=== PATIENT | female | born 1995 | race Caucasian/White ===

== ENCOUNTER 2023-01-10 00:49 | Emergency (ER) | payer BC, SELFPAY ==
[2023-01-10 00:52] VITALS: BP 192/110; PULSE 63; RESP 18; TEMP 36.6; O2SAT 99; BMI 27.4
[2023-01-10 01:02] LABS: MANUAL DIFF FLAG NO
[2023-01-10 01:04] LABS: Basophils Percent Auto 0.2 % (0-2); Eosinophils Absolute Auto 0.2 X10*3/uL (0.0-0.4); Eosinophils Percent Auto 2.3 % (0-4); Hematocrit 39.5 % (37.0-47.0); Hemoglobin 12.3 g/dl (12.0-16.0); Imm Gran Abs Auto 0.03 X10*3/uL (0.00-0.03); Imm Gran Pct Auto 0.4 % (0.0-0.4); Lymphocytes Absolute Auto 2.8 X10*3/uL (1.2-4.9); Lymphocytes Percent Auto 33.2 % (20-40); Mean Corpuscular HGB Conc 31.1 g/dl (31.0-35.0); Mean Corpuscular Hemoglobin 27.8 pg (27.0-33.0); Mean Corpuscular Volume 89.4 fL (80.0-98.0); Mean Platelet Volume 10.1 fL (9.4-12.3); Monocytes Absolute Auto 0.6 X10*3/uL (0.1-1.2); Neutrophils Absolute Auto 4.8 x10*3/uL (2.0-8.3); Neutrophils Percent Auto 56.9 % (45-73); Platelet Count 194 X10*3/uL (160-400); Red Blood Count 4.42 X10*6/uL (4.20-5.50); Red Cell Distribution Width 12.8 % (11.0-16.0); White Blood Count 8.4 X10*3/uL (4.8-10.8)
[2023-01-10 01:30] LABS: Anion Gap 11 (12-20); Blood Urea Nitrogen 18 mg/dL (9-16); Calcium 9.3 mg/dL (8.4-10.2); Carbon Dioxide 28 mmol/L (22-29); Chloride 106 mmol/L (96-108); Estimated Glomerular Filt Rate > 60; Glucose Random 92 mg/dL (60-115); Potassium 3.8 mmol/L (3.3-5.1); Sodium 141 mmol/L (135-145)
--- OUTSIDE RECORDS SUMMARY | 2023-01-10 02:44 | XMS_ITS | Continuity of Care Document ---
Author Name Unknown Organization [facility] ter Address [address] [place] [id number] Care Team Providers Care Avionics Repair Technician Name Role Phone Not on Staff, PCP Primary Care Physician Unavail able Encounter [facility] Date(s): 11/19/22 - 11/21/[address] [address]- Discharge Disposition: A-D/C Home Attending Physician: Justice Mathis MD Admitting Physician: Justice Mathis MD Referring Physician: Justice Mathis MD Allergies, Adverse Reactions, Alerts No Known Allergies Medications acetaminophen 325 mg oral tablet 650 mg, By Mouth, Every 4 hours, PRN, (1-3), may give 325mg per patient preference and re-dose [id number] within 4 hours, if needed. Patient should only receive a total of 650mg of Acetaminophen every 4 hours., Refills 0, Maintenance, Pain , Mild, 0... Start Date: 11/21/22 Status: Ordered Acetaminophen Tablet 650 mg, Tablet, By Mouth, Every 4 hours, PRN for Pain , Mild, (1-3), may give 325mg per patient preference and re-dose with 325mg within 4 hours, if needed. Patient should only receive a total of 650mg of Acetaminophen every 4 hours., Routine, 11/19... Start Date: 11/19/22 Stop Date: 11/21/22 Status: Discontinued ibuprofen 800 mg oral tablet 800 mg, 1, tablet, By Mouth, Every 8 hours, PRN, (4-6), may give 400mg per patient preference and re-dose with 400mg within 8 hours if needed. Patient should only receive a total of 800mg of Ibuprofen every 8 hours., Refills 0, Maintenance, Pain , M... Start Date: 11/21/22 Status: Ordered Paxlovid 150 mg-100 mg (150 mg-100 mg Dose) oral tablet See Instructions, By Mouth 2 times a day Take 150 mg nirmatrelvir (one 150 mg tablet) and 100 mg ritonavir (one 100 mg tablet), taking both tablets together, orally twice daily for 5 days, # 1 each, 0 Refills, Maintenance, 08/11/22 23:07:00 EST, [facility]... Start Date: 08/11/22 Status: Ordered Pepcid 20 mg oral tablet 1 tablet = 20 mg, By Mouth, 2 times a day, 0 Refills, Maintenance, 11/19/22 9:58:00 EDT, Partial fill upon patient request if the prescription is for a schedule II opioid drug. Start Date: 11/19/22 Status: Ordered Multivitamins with Vitamin B Complex, Vitamin C, Minerals and L- Methylfolate oral capsule 1 capsule, By Mouth, Daily, 0 Refills, Maintenance, 11/19/22 9:58:00 EDT, Partial fill upon patientrequest if the prescription is for a schedule II opioid drug. Start Date: 11/19/22 Status: Ordered Problem List Condition Confirmation Course Effective Dates Status Health St atus Informant Obese class II Confirmed Active Vital Signs Most recent to oldest [Reference Range]: 1 2 3 Height 168 cm (11/21/22 8:54 AM) 168 cm (11/21/22 12:08 AM) 168 cm (11/20/22 4:00 PM) Weight 105.9 kg (11/19/22 11:15 AM) 105.9 kg (11/19/22 10:58 AM) 105.9 kg (11/19/22 9:55 AM) Oxygen Saturation [94-100 %] 100 % (11/20/22 4:00 PM) 99 % (11/20/22 8:00 AM) 100 % (11/19/22 5:00 PM) Pulse Rate [55-90 bpm] 92 bpm *H* (11/21/22 8:54 AM) 69 bpm (11/21/22 12:08 AM) 72 bpm (11/20/22 4:00 PM) Body Mass Index [18.5-24.99 kg/m2] 37.52 kg/m2 *>HHI* (11/19/22 11:15 AM) Blood Pressure [90-138/55-84 mm Hg] 122/74mm Hg (11/21/22 8:54 AM) 136/79mm Hg (11/21/22 12:08 AM) 116/69mm Hg (11/20/22 4:00 PM) Respiratory Rate [16-30 br/min] 18 br/min (11/21/22 9:43 AM) 19 br/min (11/21/22 8:54 AM) 17 br/min (11/21/22 12:08 AM) Temperature [96.8-100.4 DegF] 98.1 DegF (11/21/22 8:54 AM) 98.1 DegF (11/21/22 12:08 AM) 98.4 DegF (11/20/22 4:00 PM) Mode of Delivery (Oxygen) Room air (11/19/22 10:56 AM) Room air (11/19/22 9:57 AM) Blood pressure sites Arm, left (11/21/22 8:54 AM) Arm, left (11/20/22 4:00 PM) Arm, left (11/20/22 8:00 AM) Temperature Route Oral (11/21/22 8:54 AM) Oral (11/21/22 12:08 AM) Oral (11/20/22 4:00 PM) Dry Weight 105.9 kg (11/19/22 11:15 AM) 105.9 kg (11/19/22 9:55 AM) Weight Obtained Via Standing scale (11/19/22 11:15 AM) Standing scale (11/19/22 9:55 AM) Dry Weight Obtained Via Standing scale (11/19/22 11:15 AM) History and physical note * Sommer Jalloh CNM: PERFORM Event Display: History and Physical Hospital Authored Date: Patient: ??TAMIKO REYEZ ? Age:??27 Years?Sex:??Female?:??1995?? OB Reason for Admission OB Reason for Admission?? No qualifying data available. LMP/EGA/MARTINE Gestational Age (EGA) and MARTINE? * Note: EGA calculated as of 11/19/2022 ?? MARTINE:??11/20/2022?EGA*:??39 weeks 6 days ? History?(0,0,0,0)?Method:??Ultrasound??(05/05/2022) History of Present Illness pt presents with c/o possible srom and some contractions, not yet painful. pt denies bleeding, dfm. Review of Systems ros all negative except hx of pp depression and pp hemorrhage Physical Exam Vitals & Measurements T:??99.6?F ?? ID:??[id number]?? RR:??18?? BP:??133/84?? SpO2:??99%?? WT:??105.9??kg?? Pelvimetry: ??Within normal limits. ? Type of Pelvis:Gynecoid.? Diagonal Conjugate Reached: No. ? Pelvic Size: Adequate?? Pelvic Exam:?_? Vulva: Within normal limits. ?? General: ??Within normal limits.? Cardiovascular: ??Within normal limits. ? Cardiovascular Assessment: Heart Rhythm ( Regular ), Heart Sounds ( S1, S2 ). ?? Abdomen/GI: ??Within normal limits,? Abdomen Description: Gravid, Non-tender. ?? Respiratory: ??Within normal limits, Respiratory pattern, Breath Sounds All Lobes.? Extremities: ??Within normal limits, Extremities,? no?? Edema: Upper Extremites, Lower Extremites.? OB Assessment Baby A Baseline:140 Baseline Description:Normal, 110-160 bpm Baseline Variability:Moderate variability Activity:Present Cervical Estimated Weight:3900 gm Membrane Status:Intact Uterine Monitor Mode, UterineExternal Cervical Cervical Dilatation5 cm Cervical Gkmykkerfg54% Station0 Assessment/Plan a-normal labor ? cat 1 tracing ? membranes intact ? rh pos ? gbs negative ?? hx of pp hemorrhage ?? hs of pp depression p-admit to ldrp ? expectant management, augment prn ? cbc, hold, start iv ? pt wants epidural ? see orders ? discussed with dr mathis and notify ob team of admission OB History History?(0,0,0,0)?No previous pregnancies history have been recorded Labs Labs Labs & Tests Antibody Screen: Negative (05/05/22) Blood Type: A Positive (05/05/22) Glucose 50 Gm, +60 Minutes: 85 mg/dL (08/21/22) Hct:??34 %??Low (08/21/22) Hepatitis B Surface Antigen: NEGATIVE (05/05/22) Hepatitis C Ab: NEGATIVE (05/05/22) Hgb:??10.8 Gm/dL??Low (08/21/22) HIV 4th Generation Ab-Ag Result: NEGATIVE (05/05/22) RPR Titer Result: NOT INDICATED (08/21/22) Rubella IgG Ab: POSITIVE (05/05/22) Syphilis Screen by [facility]: NEGATIVE (08/21/22) Urine Culture: Urine Culture (05/05/22) Problem List Active Active Problem List : (Obstetric) (02/17/22) Procedure/Surgical History No qualifying data available. Home Medications Famotidine: 20 mg = 1 tablet, By Mouth, 2 times a day Multivitamin, : 1 capsule, By Mouth, Daily nirmatrelvir-ritonavir: See Instructions, By Mouth 2 times a dayTake 150 mg nirmatrelvir (one 150 mg tablet) and 100 mg ritonavir (one 100 mg tablet), taking both tablets together, orally twice dailyfor 5 days Allergies No active allergies Family History No family history recorded. Plan OB Plan Circumcision Plan: None (11/19/22) Feeding Plan: Breast milk (11/19/22) Labor Coping Mechanisms: Epidural (11/19/22) Hospital Progress note * Chris RNLilian: PERFORM, SIGN, VERIFY Event Display: Progress Note Hospital Authored Date: [id number] Patient: TAMIKO REYEZ Age: 27 years Sex: Female : 1995 Associated Diagnoses: None Author: Lilian Perez RN OB stable upon discharge. Educated on warning signs, care, care, and need for follow-up appointments for both patient and . Patient verbalized understanding of discharge instructions. Patient discharged home with significant other. Patient placed in car seat prior to leaving. Findings Problem Related to Alteration in Comfort : Alteration in Comfort/new 11/21/2022 9:00 EDT Alteration in Comfort Related to Other: vaginal delivery Goals & Outcomes: Comfort Pt will report acceptable level of comfort & pain control Interventions Implemented: Comfort Assess pain using appropriate pain scale/tools, Assess aggravating factors & prevent them accordingly, Assess alleviating factors & promote them accordingly BH Goals/Interventions, Comfort Yes Comfort, Problem Start 11/21/2022 9:32 Reviewed plan with, Comfort Patient Patient Progression, Comfort Pt progressing according to plan Comfort, Problem Ongoing Yes . * Kendy Estrada RN: PERFORM, SIGN, VERIFY Event Display: Progress Note Hospital Authored Date: [id number] Patient: TAMIKO REYEZ Age: 27 years Sex: Female : 1995 Associated Diagnoses: None Author: Kendy Estrada RN Pt is resting comfortably. VSS, alert and oriented x3. Pt is OOB and showered. Fundus down and firmwith mild lochia rubra. Pt responding well to medication as needed. Lung sounds clear all throughout. Abdomen soft, non distended and passing gas with positive bowel sounds in all 4 quadrants. Pt voiding with no difficulties and ambulating frequently in room. Pt with no difficulties. FOB in room providing supportive care to mom and infant. Call ochoa within reach, all needs met at this time. * Justice Mathis MD: PERFORM, SIGN, VERIFY Event Display: Progress Note Hospital Authored Date: [id number] Patient: TAMIKO REYEZ Age: 27 years Sex: Female : 1995 Associated Diagnoses: None Author: Duke SAMUELS, Justice Wyman Basic Information Summary : 3 Parity: 1 . Baby A - Weight: 3.934 kg Baby A - Date, Time of : 11/19/22 16:48:00 Baby A - Gender: Male Baby A - Complications: None EGA at Documented Date, Time: 39W 2D Weight at Delivery Baby A - Delivery Type: Vaginal Delivery Complications: None Subjective . Objective Recent Vital Signs Temperature: 97.8 DegF (11/20/22 08:00:00) Pulse Rate: 79 bpm (11/20/22 08:00:00) Respiratory Rate: 16 br/min (11/20/22 08:00:00) Systolic Blood Pressure: 120 mm Hg (11/20/22 08:00:00) Diastolic Blood Pressure: 67 mm Hg (11/20/22 08:00:00) Oxygen Saturation: 99 % (11/20/22 08:00:00) Results Review Medication List Active Medications Ordered Acetaminophen: 650 mg, By Mouth, Every 4 hours, PRN: Pain , Mild. Docusate: 100 mg, 1 capsule, By Mouth, 2 times a day, PRN: Constipation. Ibuprofen: 800 mg, By Mouth, Every 8 hours, PRN: Pain , Moderate. Multivitamin, : 1 tablet, By Mouth, Daily. Prescribed nirmatrelvir-ritonavir: See Instructions, By Mouth 2 times a day Take 150 mg nirmatrelvir (one 150 mg tablet) and 100 mg ritonavir (one 100 mg tablet), taking both tablets together, orally twice daily for 5 days, 1 each, 0 Refill(s). Documented Famotidine: 20 mg, 1 tablet, By Mouth, 2 times a day, 0 Refill(s). Multivitamin, : 1 capsule, By Mouth, Daily, 0 Refill(s). Medications Inactivated in the Last 72 Hours Calcium Carbonate: 1,000 mg, 2 tablet, Chew, 3 times a day, PRN: Indigestion. Lactated Ringers Injection 1,000 mL: 125 mL/hr, IV Infusion. Methylergonovine: 0.2 mg, 1 mL, Intramuscular, Once. Ondansetron: 4 mg, IV Push, Every 8 hours, PRN: Nausea & Vomiting. Oxytocin 30 units: 2 mL/hr, IV Infusion, Stop: 12/19/22 12:59:00 EDT. Oxytocin 30 units: 334 mL/hr, IV Infusion, Stop: 11/19/22 22:11:00 EDT. Oxytocin 30 units: 334 mL/hr, IV Infusion, Stop: 11/19/22 21:51:00 EDT. . Impression and Plan Impression Post- day # 1 meeting milestones Plan Continue current plan routine post care Note * Lilian Perez RN: PERFORM Event Display: Discharge/Transfer Note Hospital Authored Date: [id number] Nursing Discharge Note Entered On: 11/21/2022 11:22 EDT Performed On: 11/21/2022 11:22 EDT by Lilian Perez RN Nursing Discharge Note 2 Discharge Time : 11/21/2022 11:20 EDT Discharge Level of Care at Discharge : Home/Fdc/Foster Care Patient Left Unit Via : Ambulatory Patient Accompanied Off Unit with : Significant other DC Instructions Provided & Signed by Pt : Yes Patient Understands D/C Instructions : Yes Patient Instructions Discharge Signed : Yes Did Pt have Specialty Bed or Wound Vac : No Lilian Perez RN - 11/21/2022 11:22 EDT * Justice Mathis MD: PERFORM, SIGN, VERIFY Event Display: Discharge/Transfer Note Hospital Authored Date: [id number] Patient: TAMIKO REYEZ Age: 27 years Sex: Female : 1995 Associated Diagnoses: None Author: Justice Mathis MD Discharge Information Admission Date: 11/19/2022 Discharge Date 11/21/2022 Reason for Hospitalization: Reason for Admission: Labor . Subsequent Reason for Admission: Labor. Hospital Course:: uncomplicated delivery and pp course seen and discharged on ppd#2 . Procedures Performed during hospitalization Vaginal: Vaginal delivery. Condition of patient on discharge: Discharge condition: Excellent. Compared to admission: Improved. Status:: Exclusive . Contraception: IUD at visit. Final Diagnoses:: Active Problems (2) Obese class II . Instructions for continuing care:: Restrictions on activity: follow up 3 weeks npv 4 weeks; plans for IUD at pp visit. * Lilian Perez RN: PERFORM Event Display: Patient Education/Instruction Authored Date: [id number] Inpatient Adult Discharge Instructions [address] [address] Name: TAMIKO REYEZ : 1995 Visit: 11/19/2022 10:58:00 Current Date: 11/21/2022 10:54 Account: [id number] Inpatient Adult Discharge Instructions We would like to thank you for allowing us to assist you with your healthcare needs. The following includes patient education materials and information regarding your injury/illness. Our entire staffstrives to provide an excellent experience for our patients and their families. PLEASE ENSURE YOU FOLLOW-UP PER THE INSTRUCTIONS BELOW! ?? YOUR OPINION IS IMPORTANT TO US! Please complete the survey you may receive by mail or email. Your feedback will be used to make improvements to the healthcare experiences of our patients and their families. Surveys are administered by [employer] ?? If further treatment with your primary care physician or another doctor is recommended, it is important for you to keep the appointment. Call your primary care physician or return to the Emergency Department immediately if your condition worsens, fails to improve, or new symptoms develop. If you need to find a doctor, you can call [facility] [employer] for a referral at [phone] or toll free at [phone] or log in to [email or web address].. ?? You can view and manage your care through the patient portal or by using a health care robb of your choosing. [employer] is a website that allows you to securely view your medical information including your hospital discharge summary, office visit summaries, medications and follow-up visits. You can also request appointments, renew medications, and request access to your medical information using a health care robb of your choosing, or just ask a question. You can enroll at [email or web address] or register during your next office visit. You have been discharged from [facility], Patient Care Unit: [facility]. If you have any questions regarding these instructions after you leave, please call us and we will be happy to assist you. [facility] Your Care Team Attending Physician Justice Mathis MD Discharging Providers Justice Mathis MD Reason for Admission Labor Your Diagnosis Hx of depression, currently Hx of hemorrhage, currently COVID-19 affecting in second trimester Normal labor state Tests Performed Below is a partial list of the tests performed during your hospitalization. You may have had other tests and procedures not included in this list. Please discuss all test results with your provider. CBC Type and Screen Primary Care Provider Not on Staff, PCP Advance Directive Health Care Proxy on File Yes - Health Care Proxy Discharge Vitals Temperature: 98.1 DegF Height: 168 cm Pulse Rate:??92 bpm??High Weight: 105.9 kg Respiratory Rate: 18 br/min Body Mass Index:??37.52 kg/m2??Critical Systolic Blood Pressure: 122 mm Hg Body surface area: 2.22 Diastolic Blood Pressure: 74 mm Hg ?? Oxygen Saturation: 100 % ?? Studies Pending All tests and labs ordered during this hospital stay have been completed unless listed below. Please discuss all pending results with your provider listed above in these instructions. ?? No incomplete studies found What to do next Instructions From Your Doctor Discharge Orders You Need to Schedule the Following Appointments Follow Up with??[facility] [phone] When??Within 4 to 5 weeks Why: follow-up Discharge Medications TAMIKO REYEZ :1995 Visit Date:11/19/2022 Medications: Please continue your medications until treatment is completed or stopped by your provider. Medications not listed below should be discontinued. Discuss any questions related to medications with your provider. What How Much When Instructions Next Dose New Acetaminophen (acetaminophen 325 mg oral tablet) 650 Milligram Oral Every 4 hours as needed for Pain , Mild (1-3), may give 325mg per patient preference and re-dose with 325mg within 4 hours, if needed. ?? Patient should only receive a total of 650mg of Acetaminophen every 4 hours. ?? May take after 12:45pm New Ibuprofen (ibuprofen 800 mg oral tablet) 1 tab(s) Oral Every 8 hours as needed for Pain , Moderate (4-6), may give 400mg per patient preference and re-dose with 400mg within 8 hours if needed. ?? Patient should only receive a total of 800mg of Ibuprofen every 8 hours. ?? As needed Unchanged Famotidine (Pepcid 20 mg oral tablet) 1 tab(s) Oral Twice a day 11 PM Unchanged Multivitamin, ( Multivitamins with Vitamin B Complex, Vitamin C, Minerals and L-Methylfolate oral capsule) 1 capsule Oral Daily 412 AM Unchanged nirmatrelvir-ritonavir (Paxlovid 150 mg-100 mg (150 mg-100 mg Dose) oral tablet) See instructions By Mouth 2 times a day Take 150 mg nirmatrelvir (one 150 mg tablet) and 100 mg ritonavir (one 100 mg tablet), taking both tablets together, orally twice daily for 5 days ?? Test Results Below is a partial list of the most recent Laboratory test results done prior to this discharge. You may have had other tests and procedures not included in this list. Please discuss all test resultswith your provider. RBC Available - RE (11/19/2022) RBC Unit ID - [id number] (11/19/2022) CBC (11/19/2022) ???WBC - 11.1 k/mm3???RBC - 3.62 m/mm3???Hgb - 10.7 Gm/dL???Hct - 32.9 %???MCV - 90.9 femtoliters???MCH - 29.6 pg???MCHC - 32.5 g/dL???Platelet Count - 211 k/mm3???RDW-SD - 45.0 femtoliters???MPV - 9.9 femtoliters???Nucleated RBC (Automated) - 0.0 #/100 WBC'S???Abs. NRBC - 0.0 k/mm3 Type and Screen (11/19/2022) ???Blood Type - A Positive???Antibody Screen - Negative Allergies (NKA means No Known Allergies) NKA Problems Active Problems??(2) Obese class II? Education Materials Below is the list of Educational Leaflet Providered with your Discharge Instructions. OB PP Post Warning Signs?? OB PP [facility]- Discharge Instructions?? COVID-19 Information for Families?? Valuables and Belongings I fully understand and agree that [facility] accepts no responsibility for all my personal property including clothing, toilet articles, radios, jewelry, dentures, hearing aids, rings, money, or any other property that is in my possession or is brought to me after admission. I understand certain valuables may be placed in a hospital safe for a short period of time. I understand that the hospital is not liable for loss or damage due to accident, fire, or other natural occurrence while said property is in the safe. I accept full responsibility for any personal property that I keep with me, and will not hold the hospital responsible in case of loss or disappearance. I acknowledge that i have been encouraged to send valuables and belongings home. ?? Review of Valuable and Belonging List: With patient, With family Date for Pt to Sign Valuables/Belongings: 11/20/22 03:28:00 ?? Other Discharge Information ? Pulmonary Rehab Status?? Pulmonary Rehab Discharge Status?? Respiratory Rate: 18 br/min ? Common Emergency Awareness Tips IS IT A STROKE? Act FAST and Check for these signs: FACE Does the face look uneven? ARM Does one arm drift down? SPEECH Does their speech sound strange? TIME Call at any sign of stroke ?? Heart Attack Signs Chest discomfort: Most heart attacks involve discomfort in the center of the chest and lasts more than a few minutes, or goes away and comes back. It can feel like uncomfortable pressure, squeezing, fullness or pain. Discomfort in upper body: Symptoms can include pain or discomfort in one or both arms, back, neck, jaw or stomach. Shortness of breath: With or without discomfort. Other signs: Breaking out in a cold sweat, nausea, or lightheaded. Remember, MINUTES DO MATTER. If you experience any of these heart attack warning signs, call to get immediate medical attention! ?? Smoking can increase your chances of developing chronic health problems and can cause harmful effects to other family members in your house. If you smoke, you are strongly encouraged to quit. Please call [employer] at [phone] or [phone] ([phone]) or log in to [email or web address] for referrals to smoking cessation programs. ?? The National Suicide Prevention Hotline is available 05/03 if you or someone you know needs to find a reason to keep living. By calling 6-907-202-talk (2509) you'll be connected to a skilled, trained counselor at a crisis center in your area. INPATIENT DISCHARGE INSTRUCTIONS SIGNATURE PAGE TAMIKO REYEZ Location:[facility] Registration Date and Time:11/19/2022 10:58 EDT Primary Care Physician: Not on Staff, PCP TAMIKO WAYNE, have received the above patient education materials/instructions and have verbalized understanding. If ambulance or transport services are being used I further acknowledge being given a choice of service. ?? If you need to contact me, please call me at this number: . Patient/Automated Manufacturing Instructor Name: Patient/Automated Manufacturing Instructor Signature: Relationship to Patient: Witness Name/Signature: Date: * Lilian Perez RN: PERFORM, SIGN, VERIFY Event Display: Patient Education Handout Authored Date: [id number] * Lilian Perez RN: PERFORM Event Display: Patient Education Leaflets Authored Date: [id number] OB PP Post Warning Signs ?? 221 SAVE YOUR LIFE Get Care for These POST- Warning signs ?? Most women who give recover without problems. But any woman can have complications after the of a baby. Learning to recognize these POST- warning signs and knowing what to do can save your life. ?? Call 911 if you have: ??? Pain in chest ??? Obstructed breathing or shortness of breath ??? Seizures ??? Thoughts of hurting yourself or your baby ?? Call healthcare provider if you have: ??? Bleeding, soaking through one pad/hour, or blood clots, the size of an egg or bigger ??? I ncision that is not healing ??? Red or swollen leg, that is painful or warm to touch ??? Temperature of 100.40??F or higher ??? Headache that does not get better, even after taking medicine, or bad headache with vision changes ?? If you can???t reach your healthcare provider, call 911 or go to an emergency room ? Tell 911 or your healthcare provider ???I had a baby on and ?(Date) I am having ?? . ? (Specific warning signs) ? These post- warning signs can become life-threatening if you don???t receive medical care right away because: ??? Pain in chest, obstructed breathing or shortness of breath (trouble catching your breath) may mean you have a blood clot in your lung or a heart problem ??? Seizures may mean you have a conditioncalled eclampsia ??? Thoughts or feelings of wanting to hurt yourself or your baby may mean you have depression ??? Bleeding (heavy) , soaking more than one pad in an hour or passing an egg- sized clot or bigger may mean you have an obstetric hemorrhage ??? Incision that is not healing, increased redness or any pus from episiotomy or site may mean you have an infection ??? Redness, swelling, warmth, or pain in the calf area of your leg may mean you have a blood clot ??? Temperature of 100.40??F or higher, bad smelling vaginal blood or discharge may mean you have an infection ??? Headache (very painful), vision changes, or pain in the upper right area of your belly may mean you have high blood pressure or post preeclampsia ?? GET HELP My Healthcare Provider/Clinic: Phone Number Hospital Closest To Ne: ? * Lilian Perez RN: PERFORM Event Display: Patient Education Leaflets Authored Date: [id number] OB PP [facility]- Discharge Instructions ?? 209 Discharge Care Instructions for the New Mom and Baby Please take a few moments to read through these helpful instructions before you leave the hospital.?? Your nurse will be glad to answer any questions you may have.?? You can also find this and more information throughout the purple Becoming a Family booklet, [facility]???[facility] New Beginnings Guide and the Consultation Services Guide given to you after the of your baby.?? You may also phone our nurses stations if you have further questions.?? [facility]:?? First Floor ([phone]), Second Floor ([phone]).?? Please call your provider if you have any questions or concerns?? before your next appointment. For ongoing support please ???Like?? us on our Facebook page ???[facility]???[facility] New Beginnings?? andsign up for our email newsletter at [email or web address].?? News and information will besent to you until your baby???s third birthday. Instructions for the New Mother Activity: For the next 2 weeks at home ??? no heavy lifting, avoid unnecessary stair climbing, and no driving(especially if you are taking medicine that may make you sleepy or feel that you are sleep deprived).?? For the next 4-6 weeks - no tampons, no douches, no sexual intercourse. Use your yanick bottle to rinse your perineum until your vaginal flow stops.?? If you have stitches in your bottom, they generally dissolve within 7-10 days.?? Apply Tucks/witch abel pads until your soreness subsides.?? Use your bathroom at home every 3 to 4 hours, rinse, and change your pads. Warm showers feel great on achy muscles, sore backs and sore bottoms. Exercise: Walking is the best form of exercise.?? Wait until your follow up appointment with your provider in4-6 weeks before engaging in more strenuous activity. Diet: Drink plenty of fluids to avoid constipation and to help support your recovery. Eat plenty of iron rich foods such as red meat, iron fortified cereals like Total and Cream of Wheat, raisins, prunes, greens and spinach.?? These will help to build your blood count back up as all women lose some blood after delivery.?? Also add foods rich in Vitamin C such as strawberries, oranges, papayas, kale and ochoa peppers. Continue to take your vitamins if you are .?? If you are not follow the instructions of your provider.?? If you were prescribed iron supplements such as ferrous sulfate, it is important to continue these until your doctor or tie puller tells you to stop. Breast Care for Nursing Mothers: Wear a comfortable fitting, supportive nursing bra.?? An underwire bra is not recommended. Express drops of breast milk and rub over your nipples and areola (brown area) before and after each feeding to protect and heal sensitive skin and then air dry your nipples.?? If you are experiencing any soreness, you may purchase nipple cream such as TenderCare or Lansinoh.?? Use it in the following manner:?? finish your feeding or pumping session, self-express colostrum onto your nipple and air dry, apply the nipple cream to the nipple and areola.?? Use only small amounts for best results. If you are having difficulty getting the baby to latch onto the breast due to swelling of the areola, try applying pressure with your fingers for a couple of minutes above and below your nipple and walk your fingers outward softening the area and pushing the swelling away.?? This technique is knownas reverse pressure softening.?? For demonstrations of this and other techniques such as the [place] Hand Expression technique, please refer to the resources section of the Consultation Services Guide that you received from services. When your milk first comes in, usually within 3 to 5 days after delivery, you may experience engorgement.?? Your breasts may become swollen and very tender.?? Cold compresses work great to help with discomfort and reduce swelling. It will get better in a couple of days.?? Continue to nurse your baby frequently.?? Call [facility]???s Consultation Service at [phone], press 1 to schedule an outpatient appointment or press 3 and a design studio consultant will return your call that day or the next if you call after 3pm. Breast Care for Bottle Feeding Mothers: Engorgement may occur within the first week after delivery.?? Your breasts may become hard and verytender.?? A cool compress of cleaned raw green cabbage leaves applied to the breast and changed as leaves wilt has been proven helpful for many women.?? Ice packs or frozen bags of peas also work nicely to ease the discomfort.?? The soreness will only last a couple of days. Keep your back turned to the water while showering to decrease breast stimulation. Wear a snug fitting bra such as a sports bra. Incision Care Following Tubal or Section: You may shower as directed by your doctor or tie puller.?? Pat your incision dry with a clean towel.??You will not need a bandage after the first day. Call your doctor or tie puller with any signs of infection such as a hard, hot swollen tender incision, especially if the skin around the incision looks pink or red.?? Yellow drainage with an odor may also be a sign of infection to report. Call your doctor or tie puller if the incision begins to separate. If you have steri-strips on the incision, they will likely fall off in the first week.?? If they have not fallen off by 10 days after delivery, you may remove them. Control: Your doctor or tie puller will discuss control methods with you [place] [facility] [place] [facility] or at your check[place].?? Be sure to let your provider know if you are . You had a Paragard IUD placed on .?? This control method is effective for 10 years. You had a Liletta placed on .?? This control method is effective for up to 5 years. You had a Nexplanon placed on .?? This control method is effective for up to 3 years. You received a Depo Provera injection on .?? This control method is effective as longas you repeat it every 3 months.?? Schedule your next dose before . You have a prescription for control pills .?? It is important to take a pill everyday at around the same time of day for effective control protection.?? Pain Management: Cramping after is common and increases in strength with each baby you have.?? If you experience painful cramps, and have no allergies to acetaminophen (Tylenol) or ibuprofen (Motrin), you may continue to take these medications as you did in the hospital.?? Ibuprofen is also helpful with back aches following epidurals, perineal pain following a vaginal delivery, and moderate incisional pain after a section or a tubal ligation.?? If you experience gas distention, especially after surgery, you may take an over the counter medication called simethicone.?? Take these chewable tablets 4 times a day as needed and directed on the package.?? Keep moving.?? Walking or rocking in a chair, will help to move the gas along.?? Yoon tea made with heated yoon wai (instead of water) and a tea bag, stirred to dissolve carbonation (bubbles) is a helpful drink to soothe a gassy stomach. Warning Signs of a Problem to Notify Your Doctor or Synthetic Gem Press Operator of: Heavy vaginal bleeding ??? which is soaking a pad every hour with bright red blood. Passing blood clots the size of an egg or larger. An incision that is not healing. A temperature greater than or equal to 100.4 especially if accompanied by any of the following symptoms ??? painful, frequent urination; extreme back or flank pain; lower belly pain with a foul smellto your vaginal flow; a red hard hot area on your breast.?? Severe headache that does not go away after taking acetaminophen or ibuprofen.?? A headache that changes your vision, including seeing spots or blurring. Right sided upper abdominal pain along the rib cage area. Pain in your legs that is warm and tender to the touch. depression signs may include ??? loss of interest in your baby, weepiness, difficulty focusing, weight loss with no appetite, exhaustion, feeling overwhelmed or anxious, feelings of despair, or thoughts of harming yourself or your baby.?? These symptoms are important and should be discussed with your doctor or tie puller. depression may develop over a period of time and needs prompt medical attention.?? Do not suffer in silence.?? In both the Becoming a Family booklet and [facility] Guide there is a screening tool used to identify women at risk, called the Almo Scale which you have taken in the office prior to delivery and again during your hospital s bobbi.?? Three to four weeks after your delivery, and before your check with your provider, take this test and share your results with your provider.?? Be sure to mention any score of 10 or more.?? Many women, and even some partners, may experience the ???baby blues?? .?? This is a state of feeling overwhelmed and weepy.?? Discomfort from childbirth, hormonal changes, exhaustion, changes to your body and lifestyle are a few of the things that contribute to the highs and lows new parents go through.?? Don???t be afraid to ask your partner or family and friends for some help at home so you can get some rest and a few minutes to yourself.?? The blues will quickly pass. Personal Safety: Every person has the right to feel safe at home and live free from physical or emotional harm.?? Ifyou have suffered mental or physical abuse at home, you are not alone.?? There is help.?? Please call HOTLINE or the [facility] Program at [phone]. CARE Bathing: Give your baby a sponge bath until the cord falls off in about 1-3 weeks.?? It is not necessary to bathe your baby every day, usually every few days is sufficient. ??Keep the cord area dry.?? Some baby girls will have a small bloody vaginal discharge. No need to worry as this is normal. It is not necessary to use lotions on the baby???s skin.?? Powders and oils are not recommended.?? Babies often get rash on their skin which comes and goes quickly and does not require any special care.?? Diaper rash can be treated with a zinc oxide preparation such as Desitin or Balmex diaper cream. Circumcision Care: Your nurse will teach you how to care for your baby???s circumcision depending on the type of circumcision your doctor or tie puller performed.?? Most circumcisions require A&& ointment for about 4-5 days.?? Be generous with the amount of A&& used as this will prevent the diaper from sticking when you go to change it. If a plastibell circumcision was done, the plastic ring around the penis will fall off in a week orso. Diapers: After the 1st??few days, the baby will start wetting more often.?? A breast fed baby will wet about6-8 times a day once mom???s milk comes in ??? usually day 4 or 5.?? This is a good sign that the baby is getting plenty to eat.?? You may notice an orangey-pink stain in the diaper which is normal for the first few days. The baby???s first bowel movements are sticky, black and tarry.?? As the baby starts to feed more often over the next couple of days, the stool will change to a seedy yellowish green color and eventually a loose mustard like stool for a breast fed baby and a more formed yellow stool for a bottle fed baby. your Baby: ??Congratulations on deciding to breastfeed your baby! You are providing your baby with the most nourishing food source on the planet, your breast milk.?? Cues such as rooting, suckling, licking and fussing may be telling you that your baby is ready to eat ??? and it is time to offer your breasts. The first weeks following the are a time for you and your baby to learn.?? The baby may be sleepy the first day after with 8 to 12 attempts ??? including 2 to 4 good feedings.?? Over the next couple of days the baby will become more wakeful, feed 8 to 12 times a day and have more wet and poopy diapers.?? Cluster feeding, especially during the evening/night time, is normal. ?? Listen for swallowing sounds and watch the baby as they become more relaxed at the breast ??? both good signs that the baby is getting a good amount of milk.?? Refrain from smoking or eating edible marijuana while you are . Even though marijuana is legal in the state of [place],??it is harmful for your baby.??It stays in breast milk for along period of time and THC can be found in the baby's urine for up to 3 weeks. Second hand smoke can also increase the risk??of Sudden Infant Syndrome / SIDS. ?? Nursing is wonderful but many moms and babies have some degree of difficulty with at first. Don???t give up!?? There are many resources available to help you overcome these temporary problems. Your improvement analyst wants to hear from you if you are having difficulties and can offermany helpful suggestions.?? Some offices have consultants on staff. [facility]???s Consultation Service is available 7 days a week, 8am to 3pm at [phone].?? Press 1 to schedule an outpatient appointment.?? Press 3 to leave a message for the sephora operations consultant, a design studio consultant will return your call that day or the next if you call after 3pm. Support Groups ??? [facility] offers free gatherings for moms and babies weekly.?? All groups meet at the [facility]???s 2nd??floor, typically in the [facility] Conference Room, Sunday???s 1 to 2 pm.?? [employer] is a worldwide organization with local community support, mother to mother support.?? Information can be found at https://www.lllusa.org Formula Feeding your Baby: Formula fed babies should eat every 3 to 4 hours.?? Look for cues that your baby is ready ??? such as rooting and sucking, licking and fussing.?? At the baby???s stomach is small and may take 10-15ml of formula.?? Over the next few days the baby will become more wakeful and feed more frequently, gradually increasing the amounts of formula taken at a feeding.?? Your improvement analyst will provideinstructions on how to increase the amount.?? Refer to packaging for formula preparation directions, depending on the type of formula you purchase ??? powder, concentrate or ready to feed. Safety: ALWAYS REMEMBER - BACK TO SLEEP! Babies sleep safest on their backs.?? Every sleep.?? Every time.?? Every nap. Babies need a firm sleep surface with a tight fitting bottom sheet.?? NO loose bedding.?? NO pillows.?? NO bumper pads or rolls.?? NO heavy or fluffy blankets. NO stuffed toys. It is not safe for your baby to sleep in your bed, in a chair, or on a sofa.?? Your baby should notsleep with you or anyone else. Car Seat: Always place your baby in a rear facing car seat in the backseat of the car. Car seat inserts that come with the car seat can be used as they are crash tested with the seat.?? You should not buy additional inserts.?? Dress the baby in a weather appropriate outfit.?? Avoid bulky clothing such as snowsuits or jackets as the baby may squirm in the seat, loosening the shoulder straps and come out of the top of the harness if you need to brake hard or are in an accident.?? Once the baby issecured in the seat you can cover your little one with a blanket if needed.?? If your baby was bornprematurely, follow the directions given to you.?? If you have not already done so, check to make sure your car seat is installed correctly. Check with your local Fire and Police Department to see if they offer car seat inspections at a location close to you. Babies Can Move: ?? Never leave your baby unattended on any surface, raised or flat, or while bathing.?? They can squirm, fall or hurt themselves.?? Always fasten the safety belt when using an infantseat or swing ??? as they may lean forward and fall. Good Handwashing is the number one way you can protect the baby from too?? many germs and prevent infection.?? When family and friends visit ask that they wash their hands before holding your baby.??Also avoid crowds the first month of your baby???s life to protect from colds and flus. Shaking a baby out of frustration can cause severe and lasting damage, even to a baby.?? If you feel you are becoming angry or overwhelmed, place the baby in a safe place and walk away.?? Call a friend or family member.?? If they are not able to offer immediate help call the Parental Stress Hotline at?? , an anonymous 05/03 source of help. Warning Signs to notify your improvement analyst of: Most babies develop a small amount of jaundice (a yellowish skin color) in the face and upper chest, by about 3 days of age.?? If the yellow color extends below the baby???s belly or if the baby is very sleepy and not feeding well, call your improvement analyst. A rectal temperature of 100.4F as it could be a sign of infection. Projectile vomiting that continues with each feeding could indicate reflux or a problem with the formula. Extreme sleepiness or very fussy. Cold symptoms with nasal stuffiness, especially if the baby is having difficulty feeding. Constipation with hard stools. Blue or dusky color, call 911. If Your Baby Needs to Remain in the Hospital: Please leave your baby???s ID bracelets on if your baby needs to remain in the hospital after you are discharged home. The phone number to NICU is [phone]. The phone number to [facility] is [phone]. The phone number to [facility] is [phone]. moms should pump every 2-3 hours or 8-12 times in 24 hours.?? If unable to place the baby to breast, if you are having difficulty getting the baby to latch on, or if the baby remains inthe hospital after you are discharged ??? bring the pumped milk to the hospital, labeled with name,date and time.?? Carry it in a small cooler or diaper bag with an ice pack and bring it the next time you visit your baby.?? Consultation Services is available if you need to rent or purchase a pump or products.?? Call and leave a message at [phone] ??? press 3 and a design studio consultant will return your call that day or the next if you call after 3pm. ? * Lilian Perez RN: PERFORM Event Display: Patient Education Leaflets Authored Date: [id number] COVID-19 Information for Families ?? 87 COVID-19 Information for Families Information from: www.cdc.gov/COVID19 ? What is coronavirus disease 2019 (COVID-19)? Coronavirus disease 2019 (COVID-19) is a respiratory illness that can spread from person to person.The virus that causes COVID-19 is a NEW [facility] ?? How does COVID-19 spread? The virus that causes COVID-19 probably emerged from an animal source, but is now spreading from person to person. The virus spreads mainly between people who are in close contact with one another (within 6 feet) through respiratory droplets produced when an infected person coughs or sneezes. It may be possible that a person can get COVID-19 by touching a surface or object that has the virus on it and then touching their own mouth, nose or eyes. ?? What are the symptoms? (*Most common in children) ??? Fever* ??? Runny nose ??? Aching muscles ??? Cough* ??? Sore throat ??? Congestion ??? A few can have vomiting &&diarrhea ?? When should a symptomatic person seek medical care? When symptoms are getting worse ??? Breathing is more difficult ?? Call the doctor immediately if: ??? Breathing is labored ??? Tightness in chest ??? Bluish lips or face ??? New confusion or cannotarouse BEFORE seeking care, call your doctor and tell them you are Being evaluated for COVID-19. ?? What can I do to protect myself and my family from getting COVID-19? Avoid close contact with people who are sick ??? Avoid touching your eyes, nose and mouth with unwashed hands ??? Wash your hands often with soap and water for at least 20 seconds. Especially: - Before you eat, prepare food or feed your children - After diapering an or using the bathroom - Use an alcohol-based hand cylinder head assembler if soap and water are not available ?? For cleaning use: ? ? Soap &&water For disinfection use: ??? Most common EPA-registered household disinfectants should be effective ??? Alcohol solutions with at least 70% alcohol ??? Diluted bleach: - 1 tsp bleach - 1 cup of water ?? What if someone I live with has symptoms? Symptomatic people should: ??? Stay home: - In an area apart from family and pets - With a separate bathroom if possible ??? Restrict activities outside your home except for medical care ??? Cover coughs or sneezes with a tissue or your elbow (discard tissue immediately) ??? Clean and disinfect frequently touched objects and surfaces every day ??? Avoid sharing personal household items: food, drink, dishes, utensils, towels, and bedding ? Is it okay for a mother with symptoms to breastfeed her infant? Breast milk is the best source of nutrition for most infants. However, much is unknown about COVID-19. Whether to start or continue should be determined by the mother in coordination with her healthcare provider. A mother with confirmed or symptoms of COVID-19 should take all possibleprecautions to avoid spreading the virus to her infant, including washing her hands before touchingthe and wearing a face mask, if possible, while feeding at the breast. If expressing breast milk with a manual or electric breast pump, the mother should wash her hands before touching any pump or bottle parts and follow recommendations for proper pump cleaning after each use. If possible, consider having someone who is well feed the expressed breast milk to the infant. ? * Lata Uriarte: PERFORM Event Display: Care Team Progress Note Authored Date: Patient: ??TAMIKO REYEZ ? Age:??27 Years?Sex:??Female?:??[id number]?? Subjective cart rounds day??1 assessment for assistance Patient??1 month??previous experience lots of difficulty nursing 1st baby (age 18months) significant struggle with PPD Feeding sheet adequately filled out- WNL 1 bottle (12ml) F due to anxiety in mom Patient?? obtained personal pump- mom cotania- not through ins Assessment/Plan Gave script and MM form to order Specta as a back up to the hands free momcozy pump that Tamiko purchased herself. Discussed feeding plan: Tamiko plans to breastfeed but had a very difficult experience and severe PPD with first baby who is only 18months. She needs to know she can use formula as needed if she should start to struggle again. She is in a more supportive situation this time and has been latching the baby well and with no pain- She gave formula when she got nervous as baby Huber was still rooting after feeding on both sides this morning. Discussed cluster feeding and how to manage with sleep and emotionally. Supports in place and access to zoom, Mother to mother group. home visits, outpatient services. Tamiko already feels more positive in terms of her experience. discussed the importance of the first two weeks to establish a good supply and expectations in terms of true feeding cues and normal baby behaviors. emphasized that our team is here to support her and how to access that support. Basic education discussed with mother/family including:? Positioning infant for optimal feeding Asymmetric latch technique Frequent breast stimulation for initiation and maintenance of milk supply Engorgement prevention and management (page 12 guide) How to know your baby is getting enough (page 14 guide) Hand expression When to use a breast pump Consultation reference guide given to mother with contact information for services and ongoing support as needed.? OB Summary : 3 Parity: 1 . Baby A - Weight: 3.934 kg Baby A - Date, Time of : 11/19/22 16:48:00 Baby A - Gender: Male Baby A - Complications: None EGA at Documented Date, Time: 39W 2D Weight at Delivery Baby A - Delivery Type: Vaginal Delivery Complications: None OB History History?(1,0,1,1)? # 1 ?Baby 1 ?Outcome Date:??2021?Outcome or Result:??Vaginal ?Gest Age:??39 weeks 5 days ? Outcome:??Live ? Sex:??-- ?Maternal Complications:?? hemorrhage ?? # 2 ?Baby 1 ?Outcome Date:??01/11/2022?Outcome or Result:??Therapeutic , medical ?Gest Age:??Unknown ? Outcome:? Sex:??-- Active Problem List Active Problem List Obese class II: (Medical) : (Obstetric) (02/17/22) Home Medications Famotidine: 20 mg = 1 tablet, By Mouth, 2 times a day Multivitamin, : 1 capsule, By Mouth, Daily nirmatrelvir-ritonavir: See Instructions, By Mouth 2 times a dayTake 150 mg nirmatrelvir (one 150 mg tablet) and 100 mg ritonavir (one 100 mg tablet), taking both tablets together, orally twice dailyfor 5 days Medications Medications (4) Active SCHEDULED: (1) Multivitamin Tablet ( Multivitamin Tablet) ??1 tablet, By Mouth, Daily CONTINUOUS: (0) PRN: (3) Acetaminophen 325 mg Tablet (Acetaminophen Tablet) ??650 mg, By Mouth, Every 4 hours Docusate Sodium 100 mg Capsule (Docusate Sodium Capsule) ??100 mg 1 capsule, By Mouth, 2 times a day Ibuprofen 800 mg Tablet (Ibuprofen Tablet) ??800 mg, By Mouth, Every 8 hours Patient Care team information Care Team Personnel Name: Not on Staff, PCP Position: [facility] Physician (General Medicine) Member Role: PCP Name: Lisa Quintana RN Position: [facility] OB RN Member Role: OB RN Care Team Related Persons Name: TAMIKO REYEZ Address: [place] Address: home [address] [place] [address]
[2023-01-10 02:52] VITALS: O2SAT 99
[2023-01-10 03:00] VITALS: BP 147/90; PULSE 58; RESP 19; TEMP 37.1; O2SAT 100
[2023-01-10] MEDS: Lidocaine HCl 1 % MPF 2 ML VIAL 4 ML INFILTRATI (03:05)
--- NOTE | 2023-01-10 03:23 | PC.NURSE ---
assisted MD with an extraction of a hemorrhoid. Pt states she has been in pain with her hemorrhoid for a few days. pt denies any difficulty in defecation or urination. Pt states has always experienced rectal hemorrhoids but after having a baby, pt has had them more frequently and the pain tonight was unbearable. Pt tolerated the procedure well.
--- NOTE | 2023-01-12 02:00 | ED.GENADULT ---
HPI - General Adult General Chief complaint: General Medical Stated complaint: Rectal bleeding Time Seen by Provider: 01/10/23 02:24 Source: patient Mode of arrival: ambulatory Limitations: no limitations History of Present Illness HPI narrative: Patient history of hemorrhoid been having increased pain in the hemorrhoid which has protruded for last few days with small amount of bleeding Related Data Previous Rx's Medication Instructions Recorded hydrocortisone 1 %-pramoxine 1 % 1 appl HI BEDTIME PRN hemorrhoids 01/10/23 rectal foam (Proctofoam HC) #10 grams Allergies Allergy/AdvReac Type Severity Reaction Status Date / Time No Known Allergies Allergy Verified 01/10/23 02:55 Review of Systems Review of Systems: Yes all other systems are reviewed and are negative [facility] Social History Social History Alcohol intake: never Physical Exam ED Vital Signs: BMI result Body Mass Index 27.4 Appearance: Alert. Oriented X3. No acute distress. Eyes: PERRLA, No Nystagmus ENT: Pharynx normal. Oral Mucosa moist Neck: Normal inspection. Neck supple. CVS: Normal heart rate and rhythm. Pulses normal. Respiratory: No respiratory distress. Equal air entry bilateral, no wheezing/rales/rhonchi Abdomen: Soft and nontender. Bowel sounds are present, no mass palpable, no CVA tenderness rectal: External thrombosed hemorrhoid no active bleeding Skin: Skin warm and dry. Normal skin color. Normal skin turgor. Extremities: No lower extremity edema. No calf tenderness Neuro: Oriented X 3. No motor deficit. Medications Administered Discontinued Medications Generic Name Dose Route Start Last Admin Trade Name Freq PRN Reason Stop Dose Admin Lidocaine HCl 4 ml 01/10/23 02:55 01/10/23 03:05 Lidocaine Hcl 1 % Mpf 2 Ml Vial INFILTRATI 01/10/23 02:56 4 ml ONCE ONE Administration Medical Decision Making Medical Decision Making [facility] Narrative: Hemorrhoid thrombectomy done using lidocaine 1% 4 cc patient pain improved discharge patient home on Anusol suppository Lab Data 01/10/23 00:57 01/10/23 00:57 Labs: Lab Results 01/10/23 01/10/23 Range/Units 00:57 00:57 WBC 8.4 (4.8-10.8) X10*3/uL RBC 4.42 (4.20-5.50) X10*6/uL Hgb 12.3 (12.0-16.0) g/dl Hct 39.5 (37.0-47.0) % MCV 89.4 (80.0-98.0) fL MCH 27.8 (27.0-33.0) pg MCHC 31.1 (31.0-35.0) g/dl RDW 12.8 (11.0-16.0) % Plt Count 194 (160-400) X10*3/uL MPV 10.1 (9.4-12.3) fL Immature Gran % (Auto) 0.4 (0.0-0.4) % Neut % (Auto) 56.9 (45-73) % Lymph % (Auto) 33.2 (20-40) % Lawrence % (Auto) 7.0 (2-11) % Eos % (Auto) 2.3 (0-4) % Baso % (Auto) 0.2 (0-2) % Lymph # (Auto) 2.8 (1.2-4.9) X10*3/uL Lawrence # (Auto) 0.6 (0.1-1.2) X10*3/uL Eos # (Auto) 0.2 (0.0-0.4) X10*3/uL Baso # (Auto) 0.0 (0.0-0.2) X10*3/uL Abs Immat Gran (auto) 0.03 (0.00-0.03) X10*3/uL Absolute Neuts (auto) 4.8 (2.0-8.3) x10*3/uL Absolute Nucleated RBC 0.000 (0.0-0.012) X10*3/uL Nucleated RBC % (auto) 0.0 (0.0-0.2) /100WBC Sodium 141 (135-145) mmol/L Potassium 3.8 (3.3-5.1) mmol/L Chloride 106 (96-108) mmol/L Carbon Dioxide 28 (22-29) mmol/L Anion Gap 11 L (12-20) BUN 18 H (9-16) mg/dL Creatinine 1.04 (0.5-1.4) mg/dL Estim Creat Clear Calc 91.0 Estimated GFR > 60 Random Glucose 92 (60-115) mg/dL Calcium 9.3 (8.4-10.2) mg/dL Discharge Plan Discharge Clinical Impression: External hemorrhoid, thrombosed Patient Disposition: Home, Self-Care Instructions: Thrombosed Hemorrhoid (ED) Additional Instructions: avoid constipation Suppository as advised Follow-up with surgeon Prescriptions: New Proctofoam HC 1-1 % foam 1 appl HI BEDTIME PRN (Reason: hemorrhoids) Qty: 10 0RF Referrals: Christiano Villavicencio MD [Physician] - 1 week Interventions: ED Discharge Assessment Last Done: 01/10/23 04:04 Discharge Date/Time: 01/10/23 04:05
== END 2023-01-10 04:05 | disposition home or self-care (01) ==
PROVIDERS: Emergency Provider Internal Medicine
DX: K64.5 Perianal venous thrombosis (principal)
CPT/HCPCS: 36415; 46083; 80048; 85025; 99284

== ENCOUNTER → 2023-01-17 09:53 | Outpatient (BNVA) | payer BC, SELFPAY | PROVIDERS: Visit Provider Surgery ==

== ENCOUNTER 2023-02-20 08:51 | Day surgery (SDC) | payer BC, SELFPAY ==
[2023-02-16 09:40] VITALS: BMI 33.4
--- NOTE | 2023-02-19 10:33 | MHC.SHP ---
Pre-Procedural Eval Section A Date of Service: 02/19/23 The patient is an INPATIENT: No Changes since office visit: No Cold of Flu in the past 2 weeks, No New Medical Problems, No Changes in Medication and No Patient answered all questions The History & Physical has been completed within 30 days and I have reviewed it.: Yes Section B Chief Complaint: Unspecified hemorrhoids Allergies: Allergies Allergy/AdvReac Type Severity Reaction Status Date / Time No Known Allergies Allergy Verified 01/17/23 10:10 Plan I have reviewed the history and physical and performed a pertinent physical examination on my patient. No changes have occurred unless specified. Time Spent With Patient Time: Total time managing care of this patient today ____ minutes.
[2023-02-20] VITALS (9 sets, daily range): BP systolic 102–123; BP diastolic 57–81; PULSE 56–70; RESP 15–20; TEMP 36.1–36.5; O2SAT 95–100
[2023-02-20 09:28] LABS: UPreg QC Valid YES; Urine Pregnancy NEGATIVE (NEGATIVE)
--- NOTE | 2023-02-20 09:53 | P.CONAN_ITS ---
HPI - Anesthesia Eval Consult details Narrative: for hemorroidectomy PMFSH Active Problems Active Problems: All Active Problems (Updated 02/20/23 @ 09:04 by Celia Greco RN) Hemorrhoids (Acute) Past Medical History Medical History Hemorrhoids Family History Family history of problems with anesthesia: No Surgical History Surgical History Hx of wisdom tooth extraction History of Problems with Anesthesia: No Social History Social History Alcohol intake: never Patient Tobacco Use Status: Never used Tobacco Use of substances other than those prescribed or required for medical reasons: No Are you DNR?: No Advance Directives: No Advance Directives Information Provided: Yes Meds Allergies Allergy/AdvReac Type Severity Reaction Status Date / Time No Known Allergies Allergy Verified 02/20/23 09:04 Active Medications: Current Medications Lactated Ringer's (Lr) 1,000 mls @ 100 mls/hr IVCONT .Q10H SO Exam Exam Date and Time: February 20, 2023 0953 Height,Weight and Vital Signs: Height 5 ft 8 in Weight 99.79 kg Pertinent Lab Results Pertinent Lab Results: Laboratory Tests 02/20/23 09:05 Urine Test NEGATIVE Airway Mallampati Class: I TM Dist: >3cm Neck ROM: Full Heart: rrr Lungs: cta Assessment and Plan Assessment Anesthesia Assessment: Chart Reviewed Final Anesthetic Review Family History of Problems with Anesthesia: No History of Problems with Anesthesia: No NPO: Yes Final Preanesthetic Review: No Changes in Pt Med Stat, Meds/Allgs Chart Reviewe d, Consent Obtained/Reviewed and Anes Risks/Benef Reviewed Patient Risk: Low Procedure Risk: Low Anesthetic Plan Anesthetic Plan: GA Disposition: Standard PACU
[2023-02-20] MEDS: Lactated Ringers 1,000 ML 100 ML IVCONT (10:07)
[2023-02-20] MEDS: oxyCODONE HCl Immed Release 5 MG TABLET PO (12:37)
--- NOTE | 2023-02-20 13:30 | P.OP_ITS ---
Operative Note Operative Note Date of Service: 02/20/23 Narrative: Preoperative diagnosis: [] Symptomatic external and internal hemorrhoids Postop diagnosis: [] Same Procedure [] hemorrhoidectomy Surgeon: [] Burke Assistant Director Of Admissions: [] Type of Anesthesia: [] General Indication for surgery: [] Large internal and external hemorrhoids at 3, 7, 11 o'clock position lithotomy Findings: [] Patient brought to the operating room, placed on operative table in a supine position, and after an adequate level of general anesthesia was induced, patient was placed in lithotomy position and the perineum and anorectal area prepped and draped in usual sterile fashion. Each hemorrhoidal bundle was identified and grasped and double fired ligature at its respective base x3. A completion the procedure, wounds irrigated, secured hemostasis. Wound was infiltrated with 0.5% Marcaine/1% lidocaine at completion. A Gelfoam pad soaked in bupivacaine 0.5% was then placed followed by sterile dressing. Sponge, needle, and instrument counts were reported correct. Patient tolerated the procedure well and emerged from anesthesia stable condition. EBL minimal
== END 2023-02-20 14:37 | disposition home or self-care (01) ==
PROVIDERS: Anesthesiology; Visit Provider Surgery
PROC: (CPT 46946; principal; 2023-02-20 10:50)
DX: K64.8 Other hemorrhoids (principal); K64.4 Residual hemorrhoidal skin tags
CPT/HCPCS: 46946; 81025; 88304; J0131; J0690; J1100; J2250; J2405; J2795; J3010

== ENCOUNTER → 2023-02-20 08:51 | Outpatient (BNV) | payer BC, SELFPAY | PROVIDERS: Visit Provider Surgery | DX: K64.9 Unspecified hemorrhoids (principal) | CPT/HCPCS: 46946 ==

== ENCOUNTER 2023-02-27 05:43 | Emergency (ER) | payer BC, SELFPAY ==
--- NOTE | ~2023-02-27 | XR_ITS ---
EXAMINATION: XR ABDOMEN KUB CLINICAL INDICATION: Nausea. Constipation. COMPARISON: None available. TECHNIQUE: AP view of the abdomen. FINDINGS: Nonobstructive bowel gas pattern. No dilated loops of bowel. Gas and stool throughout the colon with prominent stool distending the rectum. No acute osseous abnormality. XR/XR KUB IMPRESSION: Nonobstructive bowel gas pattern. Prominent stool distending the rectum.
[2023-02-27 05:46] VITALS: BP 173/120; PULSE 102; RESP 20; TEMP 36.9; O2SAT 95; BMI 35.5
--- NOTE | 2023-02-27 09:29 | ED.GENADULT ---
HPI - General Adult General Chief complaint: General Medical Stated complaint: constipation, hemorrhoids surgery 02/20 Time Seen by Provider: 02/27/23 09:21 Source: patient and family Mode of arrival: ambulatory Limitations: no limitations History of Present Illness HPI narrative: 27 year old patient with no past medical history post hemorrhoidectomy on 02/20/23 presents with c/o of constipation for the past two days. Her last bowel movement was the morning of the surgery. She has been taking Colace 3 times a day, Miralax once a day and has tried milk of magnesia and 2 enemas in an effort to remedy her symptoms. She elicits nausea, low back pain that started yesterday 02/26, abdominal discomfort and feeling bloated, blood in toilet with attempts at bowel movements. She denies vomiting, fevers, chills, body aches, chest pain, and SOB. complaint: constipation Onset (ago): day(s) Location: abdomen and buttocks Radiation: back Severity: moderate Severity scale (1-10): 3 Quality: aching Pain Consistency: constant Relieving factors: none Associated symptoms: loss of appetite and nausea/vomiting Treatments prior to arrival: other (colace, miralax, milk and mag, and 2 enemas) Related Data Previous Rx's Medication Instructions Recorded hydrocortisone 1 %-pramoxine 1 % 1 appl [place] BEDTIME PRN hemorrhoids 01/10/23 rectal foam (Proctofoam HC) #10 grams hydrocodone 5 mg-acetaminophen 325 1 tab PO Q4-6H PRN pain #60 tabs 02/20/23 mg tablet Allergies Allergy/AdvReac Type Severity Reaction Status Date / Time No Known Allergies Allergy Verified 02/27/23 05:50 Review of Systems Review of Systems: Yes all other systems are reviewed and are negative Constitutional: Constitutional: Denies body ache(s), Denies chills, Denies fever(s) and Reports poor appetite Gastrointestinal: Gastrointestinal: Reports abdominal pain, Reports bloating, Reports tenesmus, Reports constipation, Reports nausea and Denies vomiting Genitourinary: Genitourinary: Reports no additional female genitourinary complaints PMFSH Past Medical History Medical History Hemorrhoids Surgical History Hx of wisdom tooth extraction Social History Social History Alcohol intake: never Patient Tobacco Use Status: Never used Tobacco Smoked in Last 30 Days: No Use of substances other than those prescribed or required for medical reasons: No Advance Directives: No Advance Directives Information Provided: No Patient : No Physical Exam ED Vital Signs: Vital Signs - 24 hr 02/27/23 05:46 02/27/23 09:39 Temperature 98.4 F 98.4 F Pulse Rate 102 H 68 Respiratory Rate 20 18 Blood Pressure 173/120 H 134/76 Pulse Oximetry 95 96 Oxygen Delivery Method Room Air Room Air BMI result Body Mass Index 35.5 Appearance: Alert. Oriented X3. patient is visibly uncomfortable Head: normocephalic, atraumatic. Neck: Normal inspection. Neck supple. CVS: Normal heart rate and rhythm. Pulses normal. Respiratory: No respiratory distress. Breath sounds normal. Abdomen: Soft, nondistended, + tender in bilateral lower quadrants, +BS x4 DONNIE: soft brown stool in the rectal vault, no blood, s/p hemorrhoidectomy, healing appropriately. Skin: Skin warm and dry. Normal skin color. Extremities: No lower extremity edema. No joint swelling. Neuro/psych: Oriented X 3. Const General: cooperative, alert, awake, Physically active and tired appearing Orientation/consciousness: patient oriented x3 Resp Effort & Inspection: normal respiratory effort and able to speak in complete sentences Cardio Rate: regular rate Rhythm: regular rhythm Heart sounds: S1 normal heart sound present and S2 normal heart sound present GI Palpation (GI): Soft to palpation, not firm, nontender, no guarding, not rigid and No Rebound tenderness present Auscultation: normal bowel sounds Neuro General: patient oriented x3 Medications Administered Discontinued Medications Generic Name Dose Route Start Last Admin Trade Name Freq PRN Reason Stop Dose Admin Acetaminophen 975 mg 02/27/23 10:04 02/27/23 10:12 Acetaminophen 325 Mg Tablet PO 02/27/23 10:05 975 mg ONCE ONE Administration Bisacodyl 10 mg 02/27/23 10:19 02/27/23 10:45 Bisacodyl 10 Mg Supp.Rect [place] 02/27/23 10:20 10 mg ONCE ONE Administration Dicyclomine HCl 10 mg 02/27/23 10:02 02/27/23 10:12 Dicyclomine Hcl 10 Mg Capsule PO 02/27/23 10:03 10 mg ONCE ONE Administration Ketorolac Tromethamine 30 mg 02/27/23 12:20 02/27/23 12:25 Ketorolac Tromethamine 30 Mg/Ml Vial IM 02/27/23 12:21 30 mg ONCE ONE Administration Lactulose 20 gm 02/27/23 10:05 02/27/23 10:12 Lactulose 20 Gm/30 Ml Solution PO 02/27/23 10:06 20 gm ONCE ONE Administration Lidocaine HCl 1 appl 02/27/23 10:38 02/27/23 10:45 Lidocaine 4 % Cream Kit TOPICAL 02/27/23 10:39 1 appl ONCE ONE Administration Protocol Polyethylene Glycol 17 gm 02/27/23 10:19 02/27/23 10:45 Polyethylene Glycol 3350 17 Gm Powd.Pack PO 02/27/23 10:20 17 gm ONCE ONE Administration Senna 15 ml 02/27/23 10:19 02/27/23 10:45 Senna [place] Extract Oral Syrup 15 Ml Syrup PO 02/27/23 10:20 15 ml ONCE ONE Administration Procedures Rectal Disimpaction Time out performed rectal disimpaction: Yes Indication: fecal impaction Procedural Sedation: No Technique: manual disimpaction with gloved finger Result: significant stool output Patient Tolerated Procedure: well and no complications Complications: pain Medical Decision Making Medical Decision Making MDM Narrative: 27 year old patient with no past medical history post hemorrhoidectomy on 02/20/23 presents with c/o of constipation for the past two days. normal abdominal sounds and no vomiting. KUB showing large amount of stool in the rectal, nonobstructive bowel gas pattern Bentyl, tylenol and lactulose given along with a rectal suppository. She was unable to move her bowels on her own and required disimpaction. After disimpaction she had a very large soft BM and is feeling much better. stable for d/c home with bowel regimen and outpatient follow up with her surgeon. Differential Diagnosis Differential Diagnoses: The differential diagnosis associated with the presentation includes ileus, small bowel obstruction, mesenteric ischemia, constipation, fecal impaction Independent Interpretation I performed an independent interpretation of an: Plain X-Ray Interpretation: no obstruction, heavy stool burden Radiology Impression Discussion of test interpretation with radiology: I have reviewed the radiologist's reading. Radiologist Impression: XR/XR KUB IMPRESSION: Nonobstructive bowel gas pattern. Prominent stool distending the rectum. Independent Historian Clinical information obtained from an independent historian. History obtained from or confirmed by: Parent External Record Review External record reviewed: Office record, Outpatient record, Prior outpatient labs and Prior outpatient radiology Prescription Management I considered prescription management with: Pain Medication and Other (laxatives) Chronic Conditions Patient?s care impacted by: Other (chronic constipation) Critical Care Time Critical Care Time Critical Care Time: No Discharge Plan Discharge Clinical Impression: Constipation Patient Disposition: Home, Self-Care Instructions: Constipation (DC) Additional Instructions: Recommend continuation of the MiraLax and Colace. You can also add senna. As last resort you can try Dulcolax with suppositories. Follow up with your Surgeon Drink plenty of water and increase your fibger intake If you develop new or worsening symptoms call 911 or come back to the ER for further evaluation. Prescriptions: No Action Proctofoam HC 1-1 % foam 1 appl [place] BEDTIME PRN (Reason: hemorrhoids) Qty: 10 0RF hydrocodone-acetaminophen 5-325 mg tablet 1 tab PO Q4-6H PRN (Reason: pain) Qty: 60 0RF Rx Instructions: Partial Fill upon patient request.
[2023-02-27 09:39] VITALS: BP 134/76; PULSE 68; RESP 18; TEMP 36.9; O2SAT 96
--- NOTE | 2023-02-27 09:58 | PC.NURSE ---
pt c/o constipation and rectal pain after hemorrhoid surgery. unable to have a BM since day of surgery despite taking miralax, MOM, and colace.
[2023-02-27] MEDS: Lactulose 20 GM/30 ML SOLUTION PO (10:12)
[2023-02-27] MEDS: Dicyclomine HCl 10 MG CAPSULE PO (10:12)
[2023-02-27] MEDS: Acetaminophen 325 MG TABLET 975 MG PO (10:12)
[2023-02-27] MEDS: bisacodyL 10 MG SUPP.RECT PR (10:45)
[2023-02-27] MEDS: Lidocaine 4 % Cream KIT 1 APPL TOPICAL (10:45)
[2023-02-27] MEDS: polyethylene glycoL 3350 17 GM POWD.PACK PO (10:45)
--- NOTE | 2023-02-27 11:51 | PC.NURSE ---
pt reporting no effect from PO and MN meds to help with constipation. pt requesting digital dissimpaction at this time. TAISHA Marie made aware
[2023-02-27] MEDS: Ketorolac Tromethamine 30 MG/ML VIAL IM (12:25)
== END 2023-02-27 13:37 | disposition home or self-care (01) ==
PROVIDERS: Emergency Provider Emergency Medicine
DX: K59.00 Constipation, unspecified (principal); R11.2 Nausea with vomiting, unspecified; Z79.899 Other long term (current) drug therapy
CPT/HCPCS: 74018; 96372; 99284; J1885

== ENCOUNTER 2023-03-02 08:53 | Outpatient (AMB) | payer BC, SELFPAY ==
[2023-03-02 08:58] VITALS: BP 126/82; PULSE 80; BMI 35.5
--- NOTE | 2023-03-02 08:58 | MHC.OFFVIS ---
Intake Vital Signs 03/02/23 08:58 Height 5 ft 6 in Weight 220 lb BMI 35.5 BP 126/82 Blood Pressure Location Lt brachial Position Sitting Pulse 80 Intake Visit Reasons: S/P hemorroidectomy Intake Note: Patient here s/p hemorrhoidectomy. Patient reports mild pinkish discharge. Noticed some blood with BM. Takes ibuprofen as needed. Traffic Counter Required: No Accompanied by: Self / Same As Patient Allergies No Known Allergies Allergy (Verified 03/02/23 09:00) HPI HPI Comments History of Present Illness Details Status post hemorrhoidectomy. Aside from incisional pain which is improving, patient is doing well. She is tolerating her diet. She is having soft stool. PFSH Medical History Hemorrhoids Surgical History History of hemorrhoidectomy (02/20/23) Hx of wisdom tooth extraction Social History Alcohol intake: never Patient Tobacco Use Status: Never used Tobacco Physical Exam Vital Signs: Last Vital Signs Pulse 80 03/02/23 08:58 BP 126/82 03/02/23 08:58 BMI result Body Mass Index 35.5 GI Other: Hemorrhoidal wounds healing uneventfully. Clean dry and intact. Assessment & Plan Assessment & Plan (1) Hemorrhoids: Code(s): K64.9 - Unspecified hemorrhoids Plan: Patient has been given local instructions and will follow-up p.r.n. Coding Level of Care Code Global (10647) Diagnoses Hemorrhoids K64.9
== END 2023-03-02 09:05 | disposition home or self-care (01) ==
PROVIDERS: Visit Provider Surgery
DX: K64.9 Unspecified hemorrhoids (principal)
CPT/HCPCS: 99024

== ENCOUNTER → 2023-03-02 08:53 | Outpatient (BNVA) | payer BC, SELFPAY | PROVIDERS: Visit Provider Surgery ==

== ENCOUNTER 2023-04-11 12:30 | Outpatient (REF) | payer BC, SELFPAY ==
[2023-04-11 13:41] LABS: MANUAL DIFF FLAG NO
[2023-04-11 14:00] LABS: Basophils Percent Auto 0.5 % (0-2); Eosinophils Absolute Auto 0.1 X10*3/uL (0.0-0.4); Eosinophils Percent Auto 1.4 % (0-4); Hematocrit 39.5 % (37.0-47.0); Hemoglobin 12.8 g/dl (12.0-16.0); Imm Gran Abs Auto 0.02 X10*3/uL (0.00-0.03); Imm Gran Pct Auto 0.3 % (0.0-0.4); Lymphocytes Absolute Auto 1.8 X10*3/uL (1.2-4.9); Lymphocytes Percent Auto 28.3 % (20-40); Mean Corpuscular HGB Conc 32.4 g/dl (31.0-35.0); Mean Corpuscular Hemoglobin 28.8 pg (27.0-33.0); Mean Platelet Volume 10.3 fL (9.4-12.3); Monocytes Absolute Auto 0.4 X10*3/uL (0.1-1.2); Monocytes Percent Auto 6.4 % (2-11); Neutrophils Percent Auto 63.1 % (45-73); Platelet Count 188 X10*3/uL (160-400); Red Blood Count 4.44 X10*6/uL (4.20-5.50); Red Cell Distribution Width 12.6 % (11.0-16.0); White Blood Count 6.4 X10*3/uL (4.8-10.8)
[2023-04-11 14:06] LABS: Estimated Average Glucose 91 mg/dL; Hemoglobin A1c % 4.8 % (<6.0)
[2023-04-11 14:43] LABS: Alanine Aminotransferase 15 U/L (0-31); Albumin Level 4.3 g/dL (3.5-5.0); Alkaline Phosphatase 92 U/L (39-117); Anion Gap 13 (12-20); Aspartate Amino Transferase 16 U/L (5-31); Bilirubin Total 0.6 mg/dL (0.0-1.0); Blood Urea Nitrogen 11 mg/dL (9-16); Calcium 9.1 mg/dL (8.4-10.2); Carbon Dioxide 26 mmol/L (22-29); Chloride 106 mmol/L (96-108); Cholesterol 157 mg/dL (<200); Estimated Glomerular Filt Rate > 60; Glucose Random 89 mg/dL (60-115); HDL Cholesterol 55 mg/dL (>40); LDL Cholesterol Calculated 89 mg/dL (<100); Potassium 3.8 mmol/L (3.3-5.1); Sodium 141 mmol/L (135-145); Total Protein 7.1 g/dL (6.5-8.0); Triglycerides 67 mg/dL (<150)
[2023-04-11 14:45] LABS: Thyroid Stimulating Hormone 0.89 uIU/mL (0.32-4.0)
[2023-04-11 14:59] LABS: Folate 9.5 ng/mL (> or = 4.0); Vitamin B12 459 pg/mL (200-900)
[2023-04-11 15:09] LABS: Cocaine Screen Urine Not Detected (Not Detect); Opiate Screen Urine Not Detected (Not Detect)
[2023-04-11 15:15] LABS: UPreg QC Valid YES; Urine Pregnancy NEGATIVE (NEGATIVE)
[2023-04-17 09:19] LABS: Alphahydroxymidazolam,GCMS Ur NEGATIVE; Alphahydroxytriazolam, GCMS Ur NEGATIVE; Alprazolam, GCMS Urine NEGATIVE; Aminoclonazepam, GCMS Urine NEGATIVE; Flurazepam Metabolite,GCMS Ur NEGATIVE; Lorazepam GCMS Urine NEGATIVE; Nordiazepam, GCMS Urine NEGATIVE; Oxazepam, GCMS Urine NEGATIVE; Temazepam, GCMS Urine NEGATIVE
[2023-04-23 12:09] LABS: Creatinine Random Urine 25 mg/dL (20-275); Normetanephrine, Free Rand Ur 165 mcg/g cr (91-365)
== END 2023-04-11 12:31 | disposition home or self-care (01) ==
LOC: HO.LAB 12:30
PROVIDERS: Visit Provider Registered Nurse
DX: F32.A Depression, unspecified (principal)
CPT/HCPCS: 80053; 80061; 80307; 80346; 81025; 82607; 82746; 83036; 83835; 84443; 85025